=== PATIENT | male | born 1960 | race Hispanic/Latino ===

== ENCOUNTER 2020-10-03 09:47 | Emergency (ER) | payer SELFPAY ==
[~2020-10-03] VITALS: Ht 185.4 cm; Wt 117.9 kg
[2020-10-03] MEDS ORDERED: FLOMAX0.4 MG PO (10:33)
[2020-10-03] MEDS ORDERED: PRAVASTATIN SOD20 MG (10:33)
[2020-10-03] MEDS ORDERED: CEPHALEXIN500 MG PO (11:47)
== END 2020-10-03 12:11 | disposition home or self-care (01) ==
LOC: FSED 10:03
DX: R33.9 Retention of urine, unspecified (principal); N40.1 Benign prostatic hyperplasia with lower urinary tract symptoms
CPT/HCPCS: 51700; 81003; 99283